=== PATIENT | female | born 1995 | race African-American/Black ===

== ENCOUNTER 2018-08-08 12:15 | Emergency (ER) | payer BC ==
[2018-08-08 12:39] VITALS: BP 112/79
--- NOTE | 2018-08-08 14:50 | UC ---
Complaint Female HPI - HPI Summary HPI Summary: 23 y/o female with h/o UTI as child, no events recently, no PMH, no current medication, no recent ABX, presents with urinary frequency, urgency, since thurs. no fever, chills, no feeling ill, noted some flank pain today R>L. no . no recent ABX - History Of Current Complaint Chief Complaint: UCGU Stated Complaint: URINARY ISSUE Time Seen by Provider: 08/08/18 13:12 Hx Obtained From: Patient Hx Last Menstrual Period: n ?: No Onset/Duration: Sudden Onset, Lasting Days Timing: Constant Severity Initially: Mild Severity Currently: Moderate Pain Intensity: 4 Pain Scale Used: 0-10 Numeric - Allergies/Home Medications Allergies/Adverse Reactions: Allergies Allergy/AdvReac Type Severity Reaction Status Date / Time No Known Allergies Allergy Verified 08/08/18 12:39 PMH/Surg Hx/FS Hx/Imm Hx Previously Healthy: Yes - Surgical History Surgical History: Yes Surgery Procedure, Year, and Place: appendectomy 9yrs ago - Social History Alcohol Use: Occasionally Substance Use Type: Marijuana Substance Use Comment - Amount & Last Used: 03/07/15 Smoking Status (MU): Never Smoked Tobacco - Immunization History Most Recent Influenza Vaccination: unknown Most Recent Tetanus Shot: unknown Most Recent Pneumonia Vaccination: unknown Review of Systems Genitourinary: Dysuria, Frequency, Urgency, Vaginal/Penile Burning Is Patient Immunocompromised?: No All Other Systems Reviewed And Are Negative: Yes Physical Exam Triage Information Reviewed: Yes Appearance: Well-Appearing, No Pain Distress, Well-Nourished Vital Signs: Initial Vital Signs Temp 97.2 F 08/08/18 12:35 Pulse 80 08/08/18 12:35 Resp 18 08/08/18 12:35 BP 112/79 08/08/18 12:35 Pulse Ox 99 08/08/18 12:35 Neck: Positive: 1 Abdomen Description: Positive: No Organomegaly, CVA Tenderness (R), Other: - + suprapubic pain. Negative: CVA Tenderness (L), Distended, Guarding, Hepatomegaly Musculoskeletal: Positive: Other: - + flank pain R >L Complaint Female Dx - Course Course Of Treatment: UA + for UTI, abx given, patinet educated to increase fluids, abx, pyridium - Differential Dx/Diagnosis Provider Diagnoses: UTI Discharge - Sign-Out/Discharge Documenting (check all that apply): Patient Departure All imaging exams completed and their final reports reviewed: Yes - Discharge Plan Condition: Good Disposition: HOME Prescriptions: Ciprofloxacin TAB* [Cipro 500 MG TAB*] 500 mg PO BID #10 tab Phenazopyridine TAB* [Pyridium 100 mg TAB*] 100 mg PO TID PRN #20 tab PRN Reason: urinary urgency Patient Education Materials: Urinary Tract Infection in Women (DC) Forms: *Work Release Referrals: No Primary Care Phys,NOPCP [Primary Care Provider] - Additional Instructions: - Go to ER with fever, chills, pain or increased back pain - Take antibiotics as directed - Pyridium for urinary frequency, spasm, pain up to three times a day - Increase fluid intake - Billing Disposition and Condition Condition: GOOD Disposition: Home
--- NOTE | 2018-08-09 21:44 | UC ---
- Progress Note Progress Note: 08/09/2018 Urine culture positive for E.coli and Staph Saprophyticus. pt is on Ciprofloxacin PO Pending final sensitivity results. No change Daja Quintero PA-C Discharge - Sign-Out/Discharge Documenting (check all that apply): Patient Departure - D/c home All imaging exams completed and their final reports reviewed: Yes - Discharge Plan Condition: Good Disposition: HOME Prescriptions: Ciprofloxacin TAB* [Cipro 500 MG TAB*] 500 mg PO BID #10 tab Phenazopyridine TAB* [Pyridium 100 mg TAB*] 100 mg PO TID PRN #20 tab PRN Reason: urinary urgency Patient Education Materials: Urinary Tract Infection in Women (DC) Forms: *Work Release Referrals: No Primary Care Phys,NOPCP [Primary Care Provider] - Additional Instructions: - Go to ER with fever, chills, pain or increased back pain - Take antibiotics as directed - Pyridium for urinary frequency, spasm, pain up to three times a day - Increase fluid intake - Billing Disposition and Condition Condition: GOOD Disposition: Home
== END 2018-08-08 13:47 | disposition home or self-care (01) ==
LOC: UCEAST 12:15
DX: N39.0 Urinary tract infection, site not specified (principal); B96.20 Unspecified Escherichia coli [E. coli] as the cause of diseases classified elsewhere; B95.8 Unspecified staphylococcus as the cause of diseases classified elsewhere
CPT/HCPCS: 81003; 84702; 87077; 87086; 87186; 99202; G0463

== ENCOUNTER 2019-02-19 14:59 | Emergency (ER) | payer BC ==
--- OUTSIDE RECORDS SUMMARY | 2019-02-19 15:04 | XMS REPORT | Continuity of Care Document ---
:1995 Author Organization [facility] Address [address], [place] [id number] Phone Care Team Providers Name Role Phone Lucian De Luna NP Unavailable Unavailable Allergies, Adverse Reactions, Alerts Substance Reaction Status No Known Allergies Active Medications Medication Instructions Dosage Effective Dates Status Comments (start - stop) MIRENA (unknown Not Available - Active strength) EFFEXOR XR take 1 capsule by Not Available - No Longer (unknown oral route every Active strength) day with food Problems Condition Effective Dates (start - Clinical Status Comments stop) Human immunodeficiency virus [HIV] - counseling Encounter for screening for human - immunodeficiency virus Encntr screen for infections w sexl mode of transmiss Encounter for oth general cnsl and advice on contraception Encounter for oth general cnsl and - advice on contraception Encntr screen for infections w sexl mode of transmiss Encounter for routine checking of intrauterine contracep dev Pelvic and perineal pain Chlamydia Chlamydia STI Screening IUC, Surveillance Pelvic Pain - NOS Ovarian Cyst, NOS LABORATORY EXAM NOS Procedures Procedure Date PREVENTIVE COUNSELING, 8-14 Minutes HIV-1/HIV-2, SINGLE ASSAY CHYLMD DNA, AMP PROBE N.GONORRHOEAE, DNA, AMP PROB OFFICE/OUTPATIENT VISIT, NEW OTHER Medical Services Contraceptive Retort Forker.Svc. Other Retort [place]orker.Svc. STI Results Test Name Date and Time Measure Units Reference Range Abnormal Flag Status Comments No information NOTE: This patient has pending results not included in this document. Advance Directives Directive Yes / No Effective Date File Name No information Encounters Encounter Practice Location Reason(s) Diagnoses Date Provider Providers Description For Visit Copied on Encounter PREVENTIVE [facility] STI Human Jan- [place] Referring COUNSELING, [facility] [place] without immunodeficienc Mayia. [address] Provider: 8-14 Minutes [place] exam (F) y virus [HIV] [address], [place] (chief counselingEncou [place], [place], [address], [address] complaint) [place] [address]. [address] [place] [address] [place] screening for tel:[phone] St, [place], [place], [place], [place] [address] [place], [address]. [place], immunodeficienc tel:[phone], y virusEncntr [id number] [place] screen for tel:[phone] infections w [id number] sexl mode of transmissEncoun ter for oth general cnsl and advice on contraceptionEn counter for oth general cnsl and advice on contraception [facility] Encntr screen Nov-0 Nunuavelino Lubin. [facility] [place] for infections [address] [place] w sexl mode of [address] [place] transmissEncoun [place], [facility], [facility] ter for routine [address]. [address] [place] checking of tel:[phone] St, [place], intrauterine [address] [place], contracep [id number], devPelvic and [place] perineal pain tel:[phone] [facility] Chlamydia Clarence-0 Mathews Gayatri. [facility] [address] Provider: [facility] [address], [place], [place], [address]. [facility]. [facility], [facility] tel:[phone], [place], [place], [id number], [place] tel:[phone] [facility] Chlamydia Clarence-0 [place] [facility]. [facility] [address], [place], [place], [address]. [facility], [facility] tel:[phone], [place], [place], [id number], [place] tel:[phone] [facility] STI Apr- Camila [facility] [place] ScreeningIUC, Emilia. [address] SurveillancePel [address], [place] giselle Pain - [place], [facility], [address] NOSOvarian [address]. [address] [place] Cyst, NOS tel:[phone] St, [place], [address] [place], [id number], [place] tel:[phone] [facility] Jan-3 [place] [place] Ek[place]. [address], [place], [place], [facility], [address] [id number]. [address] [place] tel:[phone] St, [place], [address] [place], [id number], [place] tel:[phone] [facility] LABORATORY EXAM Nov- Mathews Gayatri. [facility] [place] NOS [address], [place], [place], [address]. [place], [address] tel:[phone] [address], [place], [place], [id number], [place] tel:[phone] Family History Family Member Diagnosis Age At Onset No information Immunizations Vaccine Date Status Comments HPV (quadrivalent) administered Note: PER PT HISTORY ; Source: Source Unspecified Payers Payer name Insurance type Covered libertarian ID Authorization(s) [facility] [id number] FPBP PRESUMPTIVE ELIGIBILITY [id number] Social History Type Description Quantity Date Captured Comments Alcohol Use Details Unknown Caffeine Use Details Unknown Tobacco Use Status Unknown Smoking Status Never smoker Non-Smoking Tobacco : No Details Available : No Details Available 2018 Use Details Sex Female Vital Signs Date / Height Weight BMI Pulse Blood Temperature Respiratory Body Head BMI Pulse Inhaled Time: Rate Pressure Rate Surface Circumference percentile Ox Ox Area No information Chief Complaint And Reason For Visit Most recent encounter only, dated '01/26/2019 13:00'. STI without exam (F ) (chief complaint) Reason For Referral Reason For Referral No information Plan Of Treatment Date Type Action Status No information History Of Present Illness Encounter Date Complaint History Of Present Illness No information Functional Status Date Functional Assessment No information Medications Administered Medication Instructions Dosage Effective Dates (start - stop) Status Comments No information Instructions Date Instruction Additional Information No information Assessments Type Assessment Date assessment Human immunodeficiency virus [HIV] counseling assessment Encounter for screening for human immunodeficiency virus 2018 assessment Encntr screen for infections w sexl mode of transmiss assessment Encounter for oth general cnsl and advice on contraception 2018 assessment Encounter for oth general cnsl and advice on contraception 2018 Goals Health Concern Goal Type Priority Status Date No information Medical Equipment Description Device [place] Device Identifier Effective Dates (start - stop ) Status No information Mental Status Date Cognitive Assessment No information Health Concerns Observation Date No information Concern Status Date No information
[2019-02-19 15:12] VITALS: BP 106/72
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
== END 2019-02-19 17:15 | disposition home or self-care (01) ==
LOC: UCEAST 14:59
DX: S20.212A Contusion of left front wall of thorax, initial encounter (principal); W51.XXXA Accidental striking against or bumped into by another person, initial encounter; Y92.9 Unspecified place or not applicable
CPT/HCPCS: 99211; G0463

== ENCOUNTER 2021-02-05 01:36 | Inpatient (IN) ==
[2021-02-05 02:32] LABS: ABS Basophils 0.1 10^3/ul (0-0.2); ABS Eosinophils 0.1 10^3/ul (0-0.6); ABS Lymphocytes 1.7 10^3/ul (1.0-4.8); ABS Monocytes 0.5 10^3/ul (0-0.8); ABS Neutrophils 4.4 10^3/ul (1.5-7.7); Eosinophil % 1.7 %; Hematocrit 37 % (35-47); Hemoglobin 12.9 g/dL (12.0-16.0); Mean Corpuscular HGB Conc 35 g/dL (31-36); Mean Corpuscular Hemoglobin 34 pg (27-31); Mean Corpuscular Volume 96 fL (80-97); Mean Platelet Volume 8.8 fL (7.4-10.4); Platelet Count 289 10^3/uL (150-450); Red Blood Count 3.85 10^6 /uL (3.70-4.87); Red Cell Distribution Width 13 % (10-15); White Blood Count 6.8 10^3/uL (3.5-10.8)
[2021-02-05 02:42] LABS: Urine Appearance Clear; Urine Bacteria 1+ (Absent); Urine Bilirubin Negative (Negative); Urine Blood 1+ (Negative); Urine Color Colorless; Urine Glucose Negative (Negative); Urine Ketones Negative (Negative); Urine Nitrite Negative (Negative); Urine Protein Negative (Negative); Urine Red Blood Cell Trace(0-2/hpf) (Absent); Urine Specific Gravity 1.001 (1.010-1.030); Urine Squamous Epithelial Cell Present (Absent); Urine Urobilinogen Negative (Negative); Urine White Blood Cell Absent (Absent)
[2021-02-05 02:43] LABS: Albumin 4.4 g/dL (3.2-5.2); Anion Gap 7 mmol/L (2-11); CO2 Carbon Dioxide 24 mmol/L (22-32); Calcium 8.7 mg/dL (8.6-10.3); Chloride 108 mmol/L (101-111); Potassium 3.4 mmol/L (3.5-5.0); Sodium 139 mmol/L (135-145)
[2021-02-05 02:47] LABS: Acetaminophen < 15 mcg/mL; Alcohol, S 278 mg/dL (<10); Salicylate < 2.50 mg/dL (<30)
[2021-02-05 02:48] LABS: Urine Benzodiazepine Screen None Detected (None Detect); Urine Cannabinoids Screen Presumptive Positive (None Detect); Urine Opiates Screen None Detected (None Detect)
[2021-02-05 02:49] LABS: ALT 12 U/L (7-52); AST 17 U/L (13-39); Albumin/Globulin Ratio 1.6 (1-3); Alkaline Phosphatase 49 U/L (34-104); BUN/Creatinine Ratio 12.3 (8-20); Blood Urea Nitrogen 9 mg/dL (6-24); EGFR African American 118.5 (>60); EGFR Non-African American 97.9 (>60); Globulin 2.8 g/dL (2-4); Glucose 83 mg/dL (70-100); Total Protein 7.2 g/dL (6.4-8.9)
[2021-02-05 02:54] LABS: HCG Pregnancy < 0.60 mIU/mL
[2021-02-05 03:32] LABS: TSH Ultra Thyroid Stim Horm 1.62 mcIU/mL (0.34-5.60)
[2021-02-05] MEDS ORDERED: Al Hydrox/Mg Hydrox/Simet LIQ 30 ML UDC PO PRN (11:23)
[2021-02-05] MEDS ORDERED: Venlafaxine XR 75 mg PO SCH (21:00)
[2021-02-06 08:21] LABS: HDL Cholesterol 81.9 mg/dL
[2021-02-06] MEDS: Vitamin THERAPEUTIC TAB PO SCH (08:57)
[2021-02-06] MEDS ORDERED: Venlafaxine XR 75 mg PO SCH (21:00)
[2021-02-07 09:01] VITALS: BP 127/83
[2021-02-07] MEDS ORDERED: Naltrexone INJ 380 MG IM ONE (10:59)
[2021-02-07] MEDS: Vitamin THERAPEUTIC TAB PO SCH (11:18)
== END 2021-02-07 14:20 | disposition home or self-care (01) | DRG 751 ==
LOC: ED 01:36 → BSU 11:23
PROVIDERS: ADMIT Psychiatry & Neurology Psychiatry; ATTEND Psychiatry & Neurology Psychiatry